=== PATIENT | female | born 1985 | race Two or more races ===

== ENCOUNTER → 2016-11-20 | Outpatient (CLI) | payer MEDICAID | END | disposition home or self-care (01) | LOC: RAD.S 16:21 | DX: Z36 Encounter for antenatal screening of mother (principal); Z3A.08 8 weeks gestation of pregnancy ==

== ENCOUNTER → 2017-02-03 | Outpatient (CLI) | payer MEDICAID | END | disposition home or self-care (01) | LOC: RAD.S 15:13 | DX: Z36 Encounter for antenatal screening of mother (principal); Z3A.19 19 weeks gestation of pregnancy ==